=== PATIENT | male | born 1970 | race Asian ===

== ENCOUNTER 2017-02-05 08:55 | Emergency (ER) | payer OTHER ==
[2017-02-05 09:06] VITALS: RESP 16
--- NOTE | 2017-02-05 09:12 | UCPHY ---
H & P Time Seen by Provider: 02/05/17 09:11 Patient Type: New HPI/ROS: Chief complaint. Elbow injury HPI. 46-year-old male injured his right elbow January 25 when he was at work and pulled his arm back striking his elbow into a metal machine. He has had pain to the and some swelling to the tip of the elbow bone. He has good range of motion. No previous injury. He is right handed. ROS Constitutional. no fever/chills, no weakness Eyes. no problems with vision ENT. no sore throat, no nasal drainage Cardiovascular. no chest pain Respiratory. no shortness of breath, no cough Abdominal. no abdominal pain, no nausea/vomiting, no diarrhea . no problems urinating MS. Right elbow pain Skin. no rash Lymph. no swollen glands Neuro. no headache, no dizziness, no difficulty walking or with speech Past Medical/Surgical History: Healthy Social History: , daily smoker, no alcohol Smoking Status: Current every day smoker Physical Exam: General Appearance: Alert well-developed male mild distress vital signs are stable Eyes: Pupils equal and round no pallor or injection. ENT, Mouth: Mucous membranes are moist. Respiratory: There are no retractions, lungs are clear to auscultation. Cardiovascular: Regular rate and rhythm. Gastrointestinal: Abdomen is soft and nontender, no masses, bowel sounds normal. Neurological: Awake and alert, sensory and motor exams grossly normal. Skin: Warm and dry, no rashes. Musculoskeletal: Neck is supple nontender. Extremities mild swelling to the tip of the elbow over the olecranon. Some warmth. No significant effusion. Full range of motion Psychiatric: Patient is oriented X 3, there is no agitation. Constitutional: Initial Vital Signs Temperature (C) 36.4 C 02/05/17 09:02 Heart Rate 74 02/05/17 09:02 Respiratory Rate 16 02/05/17 09:02 Blood Pressure 155/87 H 02/05/17 09:02 O2 Sat (%) 95 02/05/17 09:02 O2 Delivery Mode Room Air Allergies/Adverse Reactions: No Known Allergies Allergy (Verified 02/05/17 09:05) Home Medications: Medication Instructions Recorded Cephalexin [Keflex (*)] 500 mg PO TID #21 cap 02/05/17 Medical Decision Making - Diagnostics Imaging: X-ray right elbow interpreted by me is negative for fracture dislocation ED Course/Re-evaluation: Re-evaluation at 9:30 a.m.. Patient is stable. He and I discussed imaging study results, treatment plan including criteria for return importance of follow -up and further evaluation. He expresses understanding and agreed Differential Diagnosis: Suspect that this is olecranon bursitis. Post trauma causing bursitis. I also considered fracture and dislocation. Departure - Departure Disposition: Home, Routine, Self-Care Clinical Impression: Olecranon bursitis of right elbow Condition: Good Instructions: Elbow Bursitis (ED) Additional Instructions: Ibuprofen 600 mg every 6 hours for pain and swelling. Cephalexin as antibiotic. Activity as tolerated. Return for worsening symptoms. Recheck in 4-5 days if not improving Work on stopping smoking Referrals: NONE *PRIMARY CARE P,. [Primary Care Provider] - As per Instructions Stevie Hernandez, [Doctor of Osteopathy] - 5-7 days, if not improved Prescriptions: Cephalexin [Keflex (*)] 500 mg PO TID #21 cap - PQRS PQRS Measurement: 134: Depression screening and followup, PRIME MD-PHQ2 (12 years and older) Over the last 2 weeks, how often have you been bothered by any of the following problems? 1. Feeling down, depressed, or hopeless? 2. Little interest or pleasure in doing things? Patient answered no to both 1 and 2 130: Documentation of medications. Reviewed all patient medications, doses, route and frequency. 226: Do you smoke? Yes, counseled to stop.
[2017-02-05 09:57] VITALS: BP 151/88; PULSE 77; TEMP 97.7; O2SAT 96
== END 2017-02-05 09:51 | disposition home or self-care (01) ==
LOC: CED 08:55
DX: M70.21 Olecranon bursitis, right elbow (principal); F17.200 Nicotine dependence, unspecified, uncomplicated
CPT/HCPCS: 73080-PO; G0463-PO